=== PATIENT | female | born 1955 | race Caucasian/White ===

== ENCOUNTER 2016-09-10 13:02 | Day surgery (SDC) | payer OTHER ==
[~2016-09-10] VITALS: Ht 170.2 cm; Wt 95.0 kg
[~2016-09-10 13:02] MED LIST: ADVAIR 100/501 DISK IH; ADVAIR 250/501 DISK IH; ALBUTEROL2.5 MG/0.5 IH; ALPRAZOLAM0.25 M2 PO; ASPIRIN81 M2 PO; BIOTIN 800 MCG1 EACH PO; CARDIZEM PO; CHERATUSSIN DA473 ML PO; CLARITHROMYCIN500 M1 PO; DILAUDID2 MG PO; DILTIAZEM ER180 M1 PO; FENOFIBRATE200 M1 PO; IBUPROFEN400 MG PO; OXYCODONE HCL5 MG PO; PERCOCET 10/1 TABLET PO; PROMETHAZINE HC25 M1 PO; PROVENTIL,2.5 MG/0.5 IH; PROVENTIL17 GM IH; SINGULAIR10 MG PO; SPIRIVA1 INHALATI IH; TYLENOL EXTRA500 MG PO; VITAMIN B12-FO1 EACH PO; XANAX0.25 MG PO; ZOMIG2.5 MG PO
[2016-09-10 13:45] VITALS: BP 128/80
[2016-09-10 19:11] VITALS: BP 151/82
[2016-09-10 19:37] VITALS: BP 128/93
== END 2016-09-10 19:52 | disposition home or self-care (01) ==
LOC: SDC 13:02
DX: G56.22 Lesion of ulnar nerve, left upper limb (principal); M67.432 Ganglion, left wrist; M13.832 Other specified arthritis, left wrist; M72.0 Palmar fascial fibromatosis [Dupuytren]; G89.29 Other chronic pain; G47.30 Sleep apnea, unspecified; J44.9 Chronic obstructive pulmonary disease, unspecified; F41.9 Anxiety disorder, unspecified; Z79.01 Long term (current) use of anticoagulants; Z79.82 Long term (current) use of aspirin; Z83.3 Family history of diabetes mellitus; Z82.49 Family history of ischemic heart disease and other diseases of the circulatory system; Z82.61 Family history of arthritis; Z84.1 Family history of disorders of kidney and ureter
CPT/HCPCS: 73100; 76000; J0690; J1100; J1170; J2250; J2405; J2765; J3010; S0020